=== PATIENT | male | born 2000 | race Two or more races ===

== ENCOUNTER 2023-04-19 08:24 | Outpatient (AMB) | payer BC, SELFPAY ==
--- NOTE | 2023-04-19 08:34 | MHC.PC.OV ---
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 Transferring care from Dr Olivo ([facility]). Medical records have not been requested and have not received. Pc Support Specialist Required: No Traveling Nurse: Not Required per policy Accompanied by: Self / Same As Patient Allergies No Known Allergies Allergy (Verified 04/19/23 08:49) Medication List - Last Reconciled 04/19/23 by Baldemar Viveros PA-C No Known Home Meds Tobacco use date assessed: 04/19/23 Dental Screening Dental Screen Date: 04/19/23 Did you have a dental visit in the last 12 months?: Yes Did you have a dental problem in the last 6 months where you did not have access to dental care?: No Was dental information given to patient?: Patient has dentist HPI Biotech Production Specialist HPI Details Patient is a 23-year-old male here today for new patient visit. Patient has previous PCP was at a pediatrics office. Patient's past medical history significant for ADHD. Was medicated for the ADHD in the past as a child though ports the medications that being effective and he was able to focus on his own. Vaccines: Up-to-date with COVID vaccine, , UTD with Tdap. considering flu vaccine [facility] Surgical History No pertinent past surgical history Social History Housing: House Alcohol intake: never Patient Tobacco Use Status: Never used Tobacco e-Cigarette/Vaping Use: Never Used Second Hand Smoke Exposure: No service: No Current occupational status: unemployed Cognitive needs: No Hearing needs: No Vision needs: Yes (glasses) Questionnaire PHQ-9 Over the last 2 weeks, how often have you been bothered by any of the following problems? 1. Little interest or pleasure in doing things: not at all 2. Feeling down, depressed, or hopeless: not at all 3. Trouble falling or staying asleep, or sleeping too much: not at all 4. Feeling tired or having little energy: not at all 5. Poor appetite or overeating: not at all 6. Feeling bad about yourself - or that you are a failure or have let yourself or your family down: not at all 7. Trouble concentrating on things, such as reading the newspaper or watching television: not at all 8. Moving or speaking so slowly that other people could have noticed. Or the opposite - being so fidgety or restless that you have been moving around a lot more than usual: not at all 9. Thoughts that you would be better off or of hurting yourself in some way: not at all Total score: 0 Depression Screening Interpretation: Negative 39142 - PHQ-9 Billing: Yes Source: Developed by Drs. Humberto Rubio, Cecy Pantoja, Luis Botello and colleagues, with an educational carmel from [employer]. Thrive Questionnaire Date Thrive assessed: 04/19/23 I am a: Patient What is your living situation today?: I have a steady place to live Within the past 12 months, did the food you bought not last and you didn't have the money to get more?: Never true Within the past 12 months, did you worry whether your food would run out before you got money to buy more?: Never true Do you have trouble paying for medicines?: No Do you have trouble getting transportation to medical appointments?: No Do you have trouble paying your heating and electricity bill?: No Do you have trouble taking care of your child, family member or friend?: No Do you have trouble with day-to-day activities such as bathing, preparing meals, shopping, managing finances, etc.?: No Are you currently unemployed and looking for a job?: No Are you interested in more education?: No Currently or been in a relationship where the following occur: no concerns reported AUDIT C Alcohol Use Questionnaire (AUDIT-C) 1. How often do you have a drink containing alcohol?: Never Total Score: 0 LINDA-7 AMB Questionnaire LINDA-7 Date LINDA - 7 assessed: 04/19/23 Feeling nervous, anxious, or on edge: 0 = Not at all Not being able to stop or control worryin = Not at all Worrying too much about different things: 0 = Not at all Trouble relaxin = Not at all Being so restless that it is hard to sit still: 0 = Not at all Becoming easily annoyed or irritable: 0 = Not at all Feeling afraid as if something awful might happen: 0 = Not at all Total LINDA-7 score (0-4 normal; 5-9 mild; 10-14 moderate; 15-21 severe): 0 Source: Developed by Drs. Humberto Rubio, Cecy Pantoja, Luis Botello and colleagues, with an educational carmel from [employer]. LINDA-7 Assessment Billing LINDA-7 Assessment Tool: LINDA-7 Assessment 97631 Review of Systems Const Denies excessive sweating, Denies fatigue and Denies headache(s) Eyes Denies loss of vision ENT Denies vertigo, Denies dizziness, Denies headache(s) and Denies sore throat Card Denies chest pain, Denies leg edema and Denies lightheadedness Resp Denies cough, Denies hemoptysis and Denies wheezing GI Denies abdominal pain, Denies melena, Denies constipation, Denies diarrhea and Denies vomiting Denies dysuria, Denies urinary frequency and Denies urinary urgency Musc Denies arthralgias, Denies joint swelling, Denies numbness and Denies tingling Skin/Breast Denies rash and Denies skin ulcer Neuro Denies Abnormal speech present, Denies behavioral changes, Denies vertigo, Denies dizziness, Denies headache(s), Denies loss of vision, Denies memory loss, Denies numbness and Denies tingling Psych Denies anxiety, Denies behavioral changes, Denies depression, Denies memory loss and Denies panic attacks Endo Denies excessive sweating, Denies fatigue, Denies flushing, Denies polydipsia and Denies polyuria Diego/Lymph Denies easy bleeding and Denies easy bruising Aller/Immun Denies wheezing Physical exam (Primary Care) Vital Signs: Last Vital Signs Pulse 66 04/19/23 08:36 BP 98/60 04/19/23 08:36 Pulse Ox 99 04/19/23 08:36 Oxygen Delivery Method Room Air 04/19/23 08:36 BMI result Body Mass Index 20.3 Tobacco/Smoking Status: Tobacco use Status Tobacco use date assessed 04/19/23 04/19/23 08:44 Patient Tobacco Use Status Never used Tobacco 04/19/23 08:44 e-Cigarette/Vaping Use Never Used 04/19/23 08:44 PHQ-9: PHQ-9 Score PHQ-9: Total score 0 04/19/23 09:00 Depression Screening Interpretation: Negative Thrive Assessment: Date of Thrive Assessment Date Thrive assessed 04/19/23 04/19/23 08:44 Currently or been in a relationship where the following occur: no concerns reported Const General: healthy appearing, no acute distress, alert and awake Nutritional Appearance: well nourished Orientation/consciousness: oriented to person, oriented to place and oriented to time HENMT Head: Yes normocephalic Ears: TM's normal bilaterally General nose exam: Normal nasal mucous membranes and turbinates present Face and sinus: No sinus tenderness Mouth: Normal oral and palatal mucosa present and tongue normal Teeth and gingiva: dentition normal and gingiva normal Throat: Yes posterior oropharynx normal, Yes tonsils normal and Yes uvula midline Eyes Conjunctivae: conjunctivae normal Sclerae: sclerae normal Pupils: Equal, round and reactive pupils present EOM: EOMs intact bilaterally Direct Ophthalmoscopy: No no photophobia Neck Neck: Yes no lymphadenopathy and Yes no JVD Thyroid: Thyroid normal Carotids: no bruits Chest Chest palpation & inspection: no tenderness Resp Effort & Inspection: normal respiratory effort and not tachypneic Auscultation: no crackles, no rales, no rhonchi and no wheezes Cardio Jugular venous distension: no JVD Rate: regular rate Rhythm: regular rhythm Heart sounds: no murmurs and normal S1 and S2 Bruits: no carotid bruits Peripheral pulses: Peripheral pulses 2+ throughout GI Inspection: Yes normal to inspection, No abdominal wall ecchymosis and No visible herniation Palpation (GI): Soft to palpation, nontender, no hepatomegaly and no splenomegaly Auscultation: normal bowel sounds General: Yes no CVA tenderness Back/Spine/Pelvis Back: no CVA tenderness and No back tenderness Cervical Spine: cervical ROM normal Thoracic/Lumbar Spine: thoracic and lumbar spine normal to inspection, straight leg raise negative bilaterally, No thoraco-lumbar ROM limited and No lumbar spinal tenderness Skin General skin exam: no rashes or lesions noted and dry skin Lesions: no lesions Rashes: no rashes Wounds: no wounds Neuro General: oriented to person, oriented to place and oriented to time Cranial nerves: Yes Equal, round and reactive pupils present Cognition (Neuro): normal cognition Speech: No Abnormal speech present Gait exam (Neuro): Normal gait present Motor exam (neuro): no tremor noted Extrem Right upper extremity: full ROM Left upper extremity: full ROM Right lower extremity: full ROM; no edema Left lower extremity: full ROM; no edema Psych Appearance: grossly normal Mental Status: mental status grossly normal Speech and movement: Normal speech and movement present Affect: normal affect Attitude: cooperative Thought process: Normal thought process present Assessment and Plan Assessment & Plan (1) Annual physical exam: Code(s): Z00.00 - Encounter for general adult medical examination without abnormal findings (2) Screening for diabetes mellitus (DM): Code(s): Z13.1 - Encounter for screening for diabetes mellitus (3) ADHD (attention deficit hyperactivity disorder): Code(s): F90.9 - Attention-deficit hyperactivity disorder, unspecified type Qualifiers: Attention deficit-hyperactivity disorder type: predominantly inattentive Qualified Code(s): F90.0 - Attention-deficit hyperactivity disorder, predominantly inattentive type Plan: Patient is a history of ADHD disorder that was diagnosed as a child. He was previously medicated for ADHD disorder though has stopped taking medication as he has been able to manage his attention focus on his own. Orders: Orders Comprehensive [place]. Panel Fast Today Z13.1 - Encounter for screening for diabetes mellitus Coding Level of Care Code New Pt Prev Care 18-39yr(39595 Diagnoses Annual physical exam Z00.00 Screening for diabetes mellitus (DM) Z13.1 Attention deficit hyperactivity disorder (ADHD), predominantly inattentive type F90.0 Attention deficit-hyperactivity disorder type: predominantly inattentive Additional Codes LINDA-7 Assessment Billing - LINDA-7 Assessment Tool: LINDA-7 Assessment 32790 ([id number])
[2023-04-19 08:36] VITALS: BP 98/60; PULSE 66; O2SAT 99; BMI 20.3
== END 2023-04-19 09:00 | disposition home or self-care (01) ==
PROVIDERS: PCP Physician Assistant; Visit Provider Physician Assistant
DX: Z00.00 Encounter for general adult medical examination without abnormal findings (principal); Z13.1 Encounter for screening for diabetes mellitus; F90.0 Attention-deficit hyperactivity disorder, predominantly inattentive type
CPT/HCPCS: 99385

== ENCOUNTER 2023-04-21 11:03 | Outpatient (REF) | payer BC, SELFPAY ==
[2023-04-21 12:56] LABS: Alanine Aminotransferase 35 U/L (0-40); Albumin Level 4.8 g/dL (3.5-5.0); Alkaline Phosphatase 101 U/L (39-117); Anion Gap 12 (12-20); Aspartate Amino Transferase 20 U/L (5-37); Blood Urea Nitrogen 12 mg/dL (9-16); Calcium 9.9 mg/dL (8.4-10.2); Carbon Dioxide 28 mmol/L (22-29); Chloride 103 mmol/L (96-108); Estimated Glomerular Filt Rate > 60; Glucose Fasting 86 mg/dL (60-99); Sodium 139 mmol/L (135-145); Total Protein 7.7 g/dL (6.5-8.0)
== END 2023-04-21 11:04 | disposition home or self-care (01) ==
LOC: HO.LAB 11:03
PROVIDERS: PCP Physician Assistant; Visit Provider Physician Assistant
DX: Z13.1 Encounter for screening for diabetes mellitus (principal)
CPT/HCPCS: 36415; 80053

== ENCOUNTER 2024-08-21 10:10 | Outpatient (AMB) | payer BC, SELFPAY ==
--- NOTE | 2024-08-21 10:12 | MHC.PC.OV ---
Vital Signs 08/21/24 10:14 Height 5 ft 9.06 in Weight 152 lb 8 oz BMI 22.5 BP 118/80 Blood Pressure Location Lt brachial Position Sitting Respiration 15 Pulse 76 Pulse Source Pulse Oximeter Temp 97.3 F Temp Source Temporal Artery Scan Pulse Oximetry (%) 95 Oxygen Delivery Method Room Air Intake Visit Reasons: annual exam Intake Note: Patient is here today for a physical. 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 Accompanied by: Self / Same As Patient Allergies No Known Allergies Allergy (Verified 08/21/24 10:26) Medication List - Last Reconciled 08/21/24 by Baldemar Viveros PA-C No Known Home Meds Tobacco use date assessed: 08/21/24 Dental Screening Dental Screen Date: 08/21/24 Did you have a dental visit in the last 12 months?: Yes Did you have a dental problem in the last 6 months where you did not have access to dental care?: No Was dental information given to patient?: Patient has dentist HPI annual exam HPI Details Patient is a 24-year-old male here today for annual physical Patient's past medical history significant for ADHD. Was medicated for the ADHD in the past as a child though ports the medications that being effective and he was able to focus on his own. Vaccines: Up-to-date with COVID vaccine, , UTD with Tdap. considering flu vaccine [facility] Surgical History No pertinent past surgical history Social History Housing: House Alcohol intake: never Patient Tobacco Use Status: Never used Tobacco e-Cigarette/Vaping Use: Never Used Second Hand Smoke Exposure: No service: No Current occupational status: unemployed Cognitive needs: No Hearing needs: No Vision needs: Yes (glasses) Questionnaire PHQ-9 Over the last 2 weeks, how often have you been bothered by any of the following problems? 1. Little interest or pleasure in doing things: not at all 2. Feeling down, depressed, or hopeless: not at all 3. Trouble falling or staying asleep, or sleeping too much: not at all 4. Feeling tired or having little energy: not at all 5. Poor appetite or overeating: not at all 6. Feeling bad about yourself - or that you are a failure or have let yourself or your family down: not at all 7. Trouble concentrating on things, such as reading the newspaper or watching television: not at all 8. Moving or speaking so slowly that other people could have noticed. Or the opposite - being so fidgety or restless that you have been moving around a lot more than usual: not at all 9. Thoughts that you would be better off or of hurting yourself in some way: not at all Total score: 0 Depression Screening Interpretation: Negative Depression Screening Done: Yes 18885 - PHQ-9 Billing: Yes Source: Developed by Drs. Humberto Rubio, Cecy Pantoja, Luis Botello and colleagues, with an educational carmel from [employer]. Thrive Questionnaire Date Thrive assessed: 08/21/24 I am a: Patient What is your living situation today?: I have a steady place to live Within the past 12 months, did the food you bought not last and you didn't have the money to get more?: Never true Within the past 12 months, did you worry whether your food would run out before you got money to buy more?: Never true Do you have trouble paying for medicines?: No Do you have trouble getting transportation to medical appointments?: No Do you have trouble paying your heating and electricity bill?: No Do you have trouble taking care of your child, family member or friend?: No Do you have trouble with day-to-day activities such as bathing, preparing meals, shopping, managing finances, etc.?: No Are you currently unemployed and looking for a job?: Yes Are you interested in more education?: No Please select the resources that you would like help with: None Currently or been in a relationship where the following occur: No concerns reported THRIVE Score: 0 AUDIT C Alcohol Use Questionnaire (AUDIT-C) 1. How often do you have a drink containing alcohol?: Never 3. How often do you have six or more drinks on one occasion?: Never Total Score: 0 LINDA-7 AMB Questionnaire LINDA-7 Date LINDA - 7 assessed: 08/21/24 Feeling nervous, anxious, or on edge: 0 = Not at all Not being able to stop or control worryin = Not at all Worrying too much about different things: 0 = Not at all Trouble relaxin = Not at all Being so restless that it is hard to sit still: 0 = Not at all Becoming easily annoyed or irritable: 0 = Not at all Feeling afraid as if something awful might happen: 0 = Not at all Total LINDA-7 score (0-4 normal; 5-9 mild; 10-14 moderate; 15-21 severe): 0 Source: Developed by Drs. Humberto Rubio, Cecy Pantoja, Luis Botello and colleagues, with an educational carmel from [employer]. LINDA-7 Assessment Billing LINDA-7 Assessment Tool: LINDA-7 Assessment 75615 Review of Systems Const Denies body aches, Denies chills, Denies excessive sweating, Denies fatigue, Denies fever(s) and Denies headache(s) Eyes Denies blurry vision ENT Denies dysphagia, Denies vertigo, Denies dizziness, Denies headache(s), Denies hearing loss and Denies tinnitus Card Denies chest pain, Denies chest pain with activity, Denies syncope, Denies irregular heart rhythm and Denies dyspnea Resp Denies chest congestion, Denies cough, Denies hemoptysis, Denies dyspnea and Denies wheezing GI Denies abdominal pain, Denies melena, Denies hematochezia, Denies coffee ground emesis, Denies dysphagia, Denies diarrhea, Denies nausea and Denies vomiting Denies difficulty urinating, Denies dysuria, Denies urinary frequency, Denies urinary hesitancy and Denies urinary urgency Musc Denies arthralgias, Denies limited range of motion, Denies muscle cramps and Denies muscle weakness Skin/Breast Denies rash and Denies skin ulcer Neuro Denies Abnormal speech present, Denies confusion, Denies vertigo, Denies dizziness, Denies syncope, Denies headache(s), Denies memory loss and Denies seizure-like activity Psych Denies anxiety, Denies confusion, Denies depression, Denies memory loss, Denies panic attacks and Denies paranoia Endo Denies excessive sweating, Denies fatigue, Denies flushing, Denies polydipsia and Denies polyuria Aller/Immun Denies wheezing Physical exam (Primary Care) Vital Signs: Last Vital Signs Temp 97.3 F 08/21/24 10:14 Pulse 76 08/21/24 10:14 Resp 15 08/21/24 10:14 BP 118/80 08/21/24 10:14 Pulse Ox 95 08/21/24 10:14 Oxygen Delivery Method Room Air 08/21/24 10:14 BMI result Body Mass Index 22.5 Tobacco/Smoking Status: Tobacco use Status Tobacco use date assessed 08/21/24 08/21/24 10:16 Patient Tobacco Use Status Never used Tobacco 08/21/24 10:12 e-Cigarette/Vaping Use Never Used 08/21/24 10:12 PHQ-9: PHQ-9 Score PHQ-9: Total score 0 08/21/24 10:24 Depression Screening Interpretation: Negative Thrive Assessment: Date of Thrive Assessment Date Thrive assessed 08/21/24 08/21/24 10:16 Currently or been in a relationship where the following occur: No concerns reported Const General: cooperative, comfortable, no acute distress, alert and awake; No confusion Orientation/consciousness: oriented to person, oriented to place, patient oriented x3 and No confusion HENMT Head: Yes normocephalic Ears: external ears normal and TM's normal bilaterally Face and sinus: No sinus tenderness Mouth: Normal oral and palatal mucosa present and tongue normal Teeth and gingiva: dentition normal and gingiva normal Throat: Yes posterior oropharynx normal, Yes tonsils normal and Yes uvula midline Eyes Conjunctivae: conjunctivae normal Sclerae: sclerae normal Pupils: Equal, round and reactive pupils present EOM: EOMs intact bilaterally Direct Ophthalmoscopy: No no photophobia Neck Neck: Yes no lymphadenopathy, No tender and Yes no JVD Thyroid: Thyroid normal Carotids: no bruits Chest Chest palpation & inspection: no tenderness Resp Effort & Inspection: normal respiratory effort, no audible wheezes, not labored and no stridor Auscultation: no crackles, no rales, no rhonchi and no wheezes Cardio Jugular venous distension: no JVD Rate: regular rate, not bradycardic and not tachycardic Rhythm: regular rhythm Bruits: no carotid bruits Peripheral pulses: Peripheral pulses 2+ throughout GI Inspection: Yes normal to inspection, No abdominal wall ecchymosis and No visible herniation Palpation (GI): Soft to palpation, nontender, no guarding, not rigid and No hepatosplenomegaly present Auscultation: normoactive bowel sounds General: Yes no CVA tenderness Back/Spine/Pelvis Back: no CVA tenderness and No back tenderness Cervical Spine: cervical ROM normal Thoracic/Lumbar Spine: thoracic and lumbar spine normal to inspection, straight leg raise negative bilaterally, No thoraco-lumbar ROM limited and No lumbar spinal tenderness Skin Lesions: no lesions Rashes: no rashes Wounds: no wounds Neuro General: oriented to person, oriented to place, patient oriented x3, CN's II-XI intact bilaterally and No confusion Cranial nerves: Yes Equal, round and reactive pupils present and Yes Normal accommodation reflex present Cognition (Neuro): normal cognition Speech: No Abnormal speech present Gait exam (Neuro): Normal gait present Motor exam (neuro): 5/5 motor strength present throughout Extrem Right upper extremity: full ROM; no cyanosis Left upper extremity: full ROM; no cyanosis Right lower extremity: no edema Left lower extremity: no edema Psych Appearance: grossly normal Mental Status: mental status grossly normal Affect: normal affect Attitude: cooperative Thought process: Normal thought process present Office Procedures Flu Questionnaire Does the patient have a severe egg allergy?: No Does the patient have severe life threatening allergies?: No Does the patient have a fever or illness today?: No Has the patient ever had Guillain-Cypress Syndrome?: No Has the patient ever had any past reaction to a flu shot?: No Immunizations Fluarix Triv [id number] (PF) 45 mcg (15 mcg x 3)/0.5 mL IM syringe Performing Provider: Baldemar Viveros PA-C [facility] [facility] [facility] [place] [facility] Documented (not given) by: EMILIANO Garcia on 08/21/24 10:24 Reason Not Given: Patient Refused Coding Level of Care Code Est Pt Prev Care 18-39y(46988) Diagnoses Annual physical exam Z00.00 Attention deficit hyperactivity disorder (ADHD), predominantly inattentive type F90.0 Attention deficit-hyperactivity disorder type: predominantly inattentive Additional Codes LINDA-7 Assessment Billing - LINDA-7 Assessment Tool: LINDA-7 Assessment 80712 ([id number]) PHQ-9 - 12794 - PHQ-9 Billing: Yes ([id number]) Assessment & Plan Assessment & Plan (1) Annual physical exam: Code(s): Z00.00 - Encounter for general adult medical examination without abnormal findings Category: Medical Plan: As per HPI (2) ADHD (attention deficit hyperactivity disorder): Code(s): F90.9 - Attention-deficit hyperactivity disorder, unspecified type Category: Medical Qualifiers: Attention deficit-hyperactivity disorder type: predominantly inattentive Qualified Code(s): F90.0 - Attention-deficit hyperactivity disorder, predominantly inattentive type Plan: Does have the diagnosis of ADHD. Was medicated as a child though does not want to for to be medicated. He feels he is able to control his attention deficit. He is currently studying to do his permanent exam and has been applying for local jobs Orders: Orders Influenza [id number] Immunization Today Z23 - Encounter for immunization Comprehensive [place]. Panel Fast Today Z13.1 - Encounter for screening for diabetes mellitus
[2024-08-21 10:14] VITALS: BP 118/80; PULSE 76; RESP 15; TEMP 36.3; O2SAT 95; BMI 22.5
== END 2024-08-21 10:37 | disposition home or self-care (01) ==
PROVIDERS: PCP Physician Assistant; Visit Provider Physician Assistant
DX: Z00.00 Encounter for general adult medical examination without abnormal findings (principal); F90.0 Attention-deficit hyperactivity disorder, predominantly inattentive type; Z23 Encounter for immunization

== ENCOUNTER → 2024-08-21 10:10 | Outpatient (BNVA) | payer BC, SELFPAY | PROVIDERS: PCP Physician Assistant; Visit Provider Physician Assistant | DX: Z00.00 Encounter for general adult medical examination without abnormal findings (principal); F90.0 Attention-deficit hyperactivity disorder, predominantly inattentive type; Z28.21 Immunization not carried out because of patient refusal | CPT/HCPCS: 90471; 96127 ==

== ENCOUNTER 2024-10-19 08:12 | Outpatient (REF) | payer BC, SELFPAY ==
--- OUTSIDE RECORDS SUMMARY | 2024-10-19 08:15 | XMS_ITS | Encounter Summary ---
Author Organization [facility] Address [address] [place] [address] Phone Care Team Providers Care Shot Blaster Name Role Phone Juvenal Beck MD Primary Care Provider [phone] Encounter Details Date Type Department Care Team (Late st Contact Info) Description 07/20/2011 Documentation [facility] Family Medicine [address] [place], [place] [id number] Family Medicine, Physician [address] [place] [address] Social History Tobacco Use Types Packs/Day Years Used Date Smoking Tobacco: Never Assessed Sex and Gender Information Value Date Recorded Sex Assigned at Male 02/03/2021 4:23 PM EDT Legal Sex Male 5:11 PM EDT Gender Identity Male 02/03/2021 4:23 PM EDT Sexual Orientation Not on file documented as of this encounter Plan of Treatment Not on file documented as of this encounter Visit Diagnoses Not on filedocumented in this encounter Care Teams Shot Blaster Relationship Specialty Start Date End Date Juvenal Beck MD [address] [place] [id number] PCP - General Pediatrics 12/16/20 02/28/23 documented as of this encounter
--- OUTSIDE RECORDS SUMMARY | 2024-10-19 08:15 | XMS_ITS | Clinical Summary ---
Author Organization [facility] Address [address] [place] [address] Phone Care Team Providers Care Search Engine Marketing Specialist Name Role Phone Unavailable Primary Care Provider Unavailabl e Allergies No known active allergies Medications No known medications Active Problems Problem Noted Date Diagnosed Date Refused influenza vaccine 10/08/2019 Vision abnormalities 05/09/2019 Overview (02/03/2021): 01/25- went to eye doc spring Immunizations Immunization Administration Dates Next Due DTaP 5 04/03/2006, 4,2002, 002,2002 HPV Vaccine 9 Valent 04/20/2016,11/25/2015,05/27 Hep A, ped/adol 05/27/2015,04/14/2014 Hep B, ped/adol 2002,2002,2002 Hib (PRP-T) 07/23/2003, 3,2002, 002 IPV 04/03/2006, 3,2002, 002 MMR 04/03/2006,03/19/2003 Meningococcal Conj (Menactra) MCV4P 05/04/2018,0 04/14/2014 Pneumococcal Conjugate 07/23/2003,2002,2002, 002 Tdap 04/14/2014 Varicella 09/01/2008,03/19/2003 Family History Medical History Relation Name Comments Hypertension Maternal Grandfather No Known Problems Mother Relation Name Status Comments Father Alive Maternal Grandfather Alive Maternal Grandmother Alive Mother Alive Other No family histo ry of *Heart Disease, No family history of Cancer, Family history of Stroke, Family history of Diabetes mellitus, No family history of *Thrombophilia, Family history of ADD/ADHD, No family history of *Sudden /SD under 55, No family history of Migraines, No family history of Seizure disorder, Family history of Hyperlipidemia, No family history of Strabismus, No family history of *CVA/Stroke, No family history of Asthma, No family history of Deafness, No family history of *Dental caries, No family history of Developmental dislocation of hip, No family history of Obesity Paternal Grandfather Alive Paternal Grandmother Alive Sister Alive Sister: Alive a nd well Social History Tobacco Use Types Packs/Day Years Used Date Smoking Tobacco: Never Comments:Never smoker Hunger/Food Answer Date Recorded In the last 12 months, did y ou or your family ever eat less than you felt you should because there wasn't enough money for food? No 02/03/2021 Stable Housing Answer Date Recorded Are you worried that in the next 2 months you may not have stable housing? No 02/03/2021 Transportation Concerns Answer Date Rec orded In the last 12 months, have you or your family ever had to go without healthcare because you didn't have a way to get there? No 02/03/2021 Hazards in Home Answer Date Recorded Think about the place you li ve. Do you have problems with any of the following? Pests (mice or roaches), mold, no/not working smoke detectors, water leaks, no window guards. No 2020 Financing Utilities Answer Date Recorde d In the last 12 months, has t he electric, gas, oil, or water company threatened to shut off your services in your home? No 02/03/2021 Safety at Home Answer Date Recorded Are you or your family worried about feeling saf e in your home? No 02/03/2021 Outside Support Answer Date Recorded Do you feel that you need mo re support from other people or programs to help you care for yourself or your family? No 02/03/2021 Understanding Health Concerns Answer Da te Recorded Do you need help understandi ng your or your child's healthcare needs (diagnosis, medications, plan, etc.)? No 02/03/2021 Financing Health Concerns Answer Date R ecorded In the last 12 months, was t here a time when your child needed to see a doctor or get medications or supplies but could not because of cost? No 02/03/2021 Missing School or Work Answer Date Amrit rded Did you or your child miss s chool or work because of a health problem that could have been avoided? No 02/03/2021 Sex and Gender Information Value Date Recorded Sex Assigned at Male 02/03/2021 4:23 PM EDT Legal Sex Male 5:11 PM EDT Gender Identity Male 02/03/2021 4:23 PM EDT Sexual Orientation Not on file Last Filed Vital Signs Vital Sign Reading Time Taken Comments Blood Pressure 115/72 02/03/2021 3:56 PM EDT Pulse 67 02/03/2021 3:56 PM EDT Temperature 36.8 ??C (98.2 ??F) 02/03/2021 3:56 PM ED T Respiratory Rate - - Oxygen Saturation - - Inhaled Oxygen Concentration - - Weight 63.7 kg (140 lb 8 oz) 02/03/2021 3:56 PM EDT Height 174.6 cm (5' 8.75 ) 02/03/2021 3:56 PM ED T Body Mass Index 20.9 02/03/2021 3:56 PM EDT Plan of Treatment Health Maintenance Due Date Last Done Comments Consider Men B Vaccine (1 of 2 - Bexsero 2-dose series) 2018 Men B Vaccine (1 of 2 - Standard) 2018 Influenza Vaccines (#1) 2024 COVID-19 Vaccine (3 - 2023-2 5 season) 2024 02/08/2021, 01/11/2021 DTaP,Tdap,and Td Vaccines (7 - Td or Tdap) 04/14/2024 04/14/2014, 04/03/2006, 09/26/2003, Additional history exists Hepatitis B Vaccines Completed 2002, 2002, 2002 HIB Vaccines Completed 07/23/2003, 08/08, 2002, Additional history exists Pneumococcal Vaccine Completed 07/23/2003, 2002, 2002, Additional history exists IPV Vaccines Completed 04/03/2006, 11/06, 2002, Additional history exists MMR Vaccines Completed 04/03/2006, 03/19/2003 Varicella Vaccines Completed 09/01/2008, 03/19/2003 Hepatitis A Vaccines Completed 05/27/2015, 04/14/20 14 HPV Vaccines Completed 04/20/2016, 11/06, 05/27/2015 Meningococcal Vaccine Completed 05/04/2018, 014 Insurance [employer] BLUE CARD OUT OF STATE
--- OUTSIDE RECORDS SUMMARY | 2024-10-19 08:15 | XMS_ITS ---
Author Name [facility] Organization Unknown Care Team Organization Name Specialty Phone Email Start Date End Da te Office of the Gallery Or Museum Attendant ([facility]) 06/21/2024
--- OUTSIDE RECORDS SUMMARY | 2024-10-19 08:16 | XMS_ITS | Encounter Summary ---
Author Organization [facility] Address [address] [place] [address] Phone Care Team Providers Care Forms Builder Name Role Phone Juvenal Beck MD Primary Care Provider Encounter Details Date Type Department Care Team (Late st Contact Info) Description 07/11/2015 Documentation [facility] [place] Family Medicine [address] [place], [place] [id number] Family Medicine, Physician [address] [place] [address] Social History Tobacco Use Types Packs/Day Years [...] on filedocumented in this encounter Care Teams Forms Builder Relationship Specialty Start Date End Date Juvenal Beck MD [address] [place] [id number] PCP - General Pediatrics 12/16/20 02/28/23 documented as of this encounter
--- OUTSIDE RECORDS SUMMARY | 2024-10-19 08:16 | XMS_ITS | Clinical Summary ---
Author Organization [facility] it Address [address] [place] [address] Care Team Providers Care Chain Tender Name Role Phone Unavailable Primary Care Provider Unavailabl e Social History Tobacco Use Types Packs/Day Years Used Date Smoking Tobacco: Never Assessed Sex and Gender Information Value Date Recorded Sex Assigned at Not on file Legal Sex Male 4:35 AM EST Gender Identity Not on file Sexual Orientation Not on file Plan of Treatment Health Maintenance Due Date Last Done Comments HPV Vaccines (1 - Male 3-dos e series) 2017 Meningococcal B Vacine (1 of 2 - Standard) 2018 DTaP,Tdap,and Td Vaccines (1 - Tdap) 2021 Hepatitis B Vaccines (1 of 3 - 19+ 3-dose series) 2021 Depression Screening 07/10/2022 HIV Screening 07/10/2022 Hepatitis C Screening 07/10/2022 Social Influencers of Health Screening 07/10/2022 COVID-19 Vaccine ( - 2023-2 5 season) 2024 Influenza Vaccine (#1) 2024 HIB Vaccines Aged Out No longer eligi ble based on patient's age to complete this topic Hepatitis A Vaccines Aged Out No long er eligible based on patient's age to complete this topic IPV Vaccines Aged Out No longer eligi ble based on patient's age to complete this topic MMR Vaccines Aged Out No longer eligi ble based on patient's age to complete this topic Meningococcal ACWY Vaccine Aged Out N o longer eligible based on patient's age to complete this topic Pneumococcal Vaccine: Pediat rics (0 to 5 Years) and At-Risk Patients (6 to 64 Years) Aged Out No longer eligible b ased on patient's age to complete this topic RSV Immunization Patients Un jaime 20 months Aged Out No longer eligible b ased on patient's age to complete this topic Varicella Vaccines Aged Out No longer eligible based on patient's age to complete this topic
--- OUTSIDE RECORDS SUMMARY | 2024-10-19 08:16 | XMS_ITS | Encounter Summary ---
Author Organization [facility] Address [address] [place] [address] Phone Care Team Providers Care Coat Checker Name Role Phone Juvenal Beck MD Primary Care Provider [phone] Encounter Details Date Type Department Care Team (Late st Contact Info) Description 11/13/2009 Documentation [facility] [place] Family Medicine [address] [place], [place] [id number] Family Medicine, Physician [address] [place] [address] Social History Tobacco Use Types Packs/Day Years [...] on filedocumented in this encounter Care Teams Coat Checker Relationship Specialty Start Date End Date Juvenal Beck MD [address] [place] [id number] PCP - General Pediatrics 12/16/20 02/28/23 documented as of this encounter
[2024-10-19 09:14] LABS: Alanine Aminotransferase 84 U/L (0-40); Albumin Level 4.5 g/dL (3.5-5.0); Alkaline Phosphatase 89 U/L (39-117); Anion Gap 11 (12-20); Aspartate Amino Transferase 35 U/L (5-37); Bilirubin Total 0.6 mg/dL (0.0-1.0); Blood Urea Nitrogen 14 mg/dL (9-16); Calcium 9.4 mg/dL (8.4-10.2); Carbon Dioxide 27 mmol/L (22-29); Chloride 105 mmol/L (96-108); Estimated Glomerular Filt Rate > 60; Glucose Fasting 84 mg/dL (60-99); Potassium 3.9 mmol/L (3.3-5.1); Sodium 139 mmol/L (135-145); Total Protein 7.8 g/dL (6.5-8.0)
== END 2024-10-19 08:13 | disposition home or self-care (01) ==
LOC: HO.LAB 08:12
PROVIDERS: PCP Physician Assistant; Visit Provider Physician Assistant
DX: Z13.1 Encounter for screening for diabetes mellitus (principal)
CPT/HCPCS: 36415; 80053

== ENCOUNTER 2025-01-15 10:47 | Outpatient (REF) | payer BC, SELFPAY ==
[2025-01-15 12:39] LABS: Alanine Aminotransferase 59 U/L (0-40); Albumin Level 4.8 g/dL (3.5-5.0); Alkaline Phosphatase 83 U/L (39-117); Aspartate Amino Transferase 35 U/L (5-37); Bilirubin Direct 0.2 mg/dL (0.0-0.5); Bilirubin Total 0.6 mg/dL (0.0-1.0); Total Protein 7.2 g/dL (6.5-8.0)
== END 2025-01-15 10:48 | disposition home or self-care (01) ==
LOC: HO.LAB 10:47
PROVIDERS: PCP Physician Assistant; Visit Provider Physician Assistant
DX: R74.8 Abnormal levels of other serum enzymes (principal)
CPT/HCPCS: 36415; 80076; 96127

== ENCOUNTER 2025-01-15 10:47 | Outpatient (AMB) | payer BC, SELFPAY ==
--- NOTE | 2025-01-15 10:50 | MHC.PC.OV ---
Vital Signs 01/15/25 10:55 Height 5 ft 9.06 in Weight 155 lb 2 oz BMI 22.9 BP 112/70 Blood Pressure Location Lt brachial Position Sitting Pulse 88 Pulse Source Pulse Oximeter Temp 97 F Temp Source Temporal Artery Scan Pulse Oximetry (%) 97 Oxygen Delivery Method Room Air Intake Visit Reasons: follow up on the test results Managing Supervisor Required: No Accompanied by: Self / Same As Patient Allergies No Known Allergies Allergy (Verified 01/15/25 11:11) Medication List - Last Reconciled 01/15/25 by Baldemar Viveros PA-C No Known Home Meds Tobacco use date assessed: 08/21/24 Dental Screening Dental Screen Date: 08/21/24 HPI follow up on the test results HPI Details Patient is a 24-year-old male here today for follow-up visit. Most recent labs did show an elevated ALT. He was to repeat labs though has not got them done yet. Otherwise asymptomatic. He denies any use of supplements, Tylenol or drinking alcohol. Patient's past medical history significant for ADHD. Was medicated for the ADHD in the past as a child though ports the medications that being effective and he was able to focus on his own. [facility] Surgical History No pertinent past surgical history Social History Housing: House Alcohol intake: never Patient Tobacco Use Status: Never used Tobacco e-Cigarette/Vaping Use: Never Used Second Hand Smoke Exposure: No service: No Current occupational status: unemployed Cognitive needs: No Hearing needs: No Vision needs: Yes (glasses) Questionnaire PHQ-9 Over the last 2 weeks, how often have you been bothered by any of the following problems? 1. Little interest or pleasure in doing things: several days 2. Feeling down, depressed, or hopeless: not at all 3. Trouble falling or staying asleep, or sleeping too much: not at all 4. Feeling tired or having little energy: several days 5. Poor appetite or overeating: several days 6. Feeling bad about yourself - or that you are a failure or have let yourself or your family down: not at all 7. Trouble concentrating on things, such as reading the newspaper or watching television: not at all 8. Moving or speaking so slowly that other people could have noticed. Or the opposite - being so fidgety or restless that you have been moving around a lot more than usual: not at all 9. Thoughts that you would be better off or of hurting yourself in some way: not at all Total score: 3 Depression Screening Interpretation: Positive Depression Screening Follow-up: Existing condition Depression Screening Done: Yes 64122 - PHQ-9 Billing: Yes Source: Developed by Drs. Humberto Rubio, Cecy Pantoja, Luis Botello and colleagues, with an educational carmel from [employer]. Thrive Questionnaire Date Thrive assessed: 01/15/25 I am a: Patient What is your living situation today?: I have a steady place to live Within the past 12 months, did the food you bought not last and you didn't have the money to get more?: Never true Within the past 12 months, did you worry whether your food would run out before you got money to buy more?: Never true Do you have trouble paying for medicines?: No Do you have trouble getting transportation to medical appointments?: No Do you have trouble paying your heating and electricity bill?: No Do you have trouble taking care of your child, family member or friend?: No Do you have trouble with day-to-day activities such as bathing, preparing meals, shopping, managing finances, etc.?: No Are you currently unemployed and looking for a job?: Yes Are you interested in more education?: No Please select the resources that you would like help with: None Currently or been in a relationship where the following occur: No concerns reported THRIVE Score: 0 LINDA-7 AMB Questionnaire LINDA-7 Date LINDA - 7 assessed: 08/21/24 Source: Developed by Drs. Humberto Rubio, Cecy Pantoja, Luis Botello and colleagues, with an educational carmel from [employer]. Review of Systems Const Denies headache(s) Eyes Denies loss of vision ENT Denies vertigo, Denies dizziness, Denies headache(s) and Denies sore throat Card Denies chest pain, Denies leg edema and Denies lightheadedness Resp Denies cough, Denies hemoptysis and Denies wheezing GI Denies abdominal pain, Denies melena, Denies constipation, Denies diarrhea and Denies vomiting Denies dysuria, Denies urinary frequency and Denies urinary urgency Musc Denies arthralgias, Denies joint swelling, Denies numbness and Denies tingling Neuro Denies Abnormal speech present, Denies behavioral changes, Denies vertigo, Denies dizziness, Denies headache(s), Denies loss of vision, Denies memory loss, Denies numbness and Denies tingling Psych Denies anxiety, Denies behavioral changes, Denies depression, Denies memory loss and Denies panic attacks Diego/Lymph Denies easy bleeding and Denies easy bruising Aller/Immun Denies wheezing Physical exam (Primary Care) Vital Signs: Last Vital Signs Temp 97 F 01/15/25 10:55 Pulse 88 01/15/25 10:55 BP 112/70 01/15/25 10:55 Pulse Ox 97 01/15/25 10:55 Oxygen Delivery Method Room Air 01/15/25 10:55 BMI result Body Mass Index 22.9 Tobacco/Smoking Status: Tobacco use Status Tobacco use date assessed 08/21/24 01/15/25 10:52 Patient Tobacco Use Status Never used Tobacco 01/15/25 10:52 e-Cigarette/Vaping Use Never Used 01/15/25 10:52 PHQ-9: PHQ-9 Score PHQ-9: Total score 3 01/15/25 10:52 Depression Screening Interpretation: Positive Depression Screening Follow-up: Existing condition Thrive Assessment: Date of Thrive Assessment Date Thrive assessed 01/15/25 01/15/25 10:52 Currently or been in a relationship where the following occur: No concerns reported Const General: healthy appearing, no acute distress, alert and awake Nutritional Appearance: well nourished Orientation/consciousness: oriented to person, oriented to place and oriented to time HENMT Ears: TM's normal bilaterally General nose exam: Normal nasal mucous membranes and turbinates present Eyes Conjunctivae: conjunctivae normal Sclerae: sclerae normal Pupils: Equal, round and reactive pupils present Neck Neck: Yes no lymphadenopathy and Yes no JVD Thyroid: Thyroid normal Carotids: no bruits Resp Effort & Inspection: normal respiratory effort and not tachypneic Auscultation: no crackles, no rales, no rhonchi and no wheezes Cardio Rate: regular rate Rhythm: regular rhythm Heart sounds: no murmurs and normal S1 and S2 GI Palpation (GI): Soft to palpation, nontender, no hepatomegaly and no splenomegaly Auscultation: normal bowel sounds Skin General skin exam: no rashes or lesions noted and dry skin Neuro General: oriented to person, oriented to place and oriented to time Cranial nerves: Yes Equal, round and reactive pupils present Speech: No Abnormal speech present Gait exam (Neuro): Normal gait present Motor exam (neuro): no tremor noted Extrem Right upper extremity: full ROM Left upper extremity: full ROM Right lower extremity: full ROM; no edema Left lower extremity: full ROM; no edema Psych Mental Status: mental status grossly normal Speech and movement: Normal speech and movement present Affect: normal affect Attitude: cooperative Thought process: Normal thought process present Coding Level of Care Code Est Pt Level 3 (87680) Diagnoses Elevated liver enzymes R74.8 Additional Codes PHQ-9 - 77314 - PHQ-9 Billing: Yes ([id number]) Assessment & Plan Assessment & Plan (1) Elevated liver enzymes: Code(s): R74.8 - Abnormal levels of other serum enzymes Category: Medical Plan: Noted slightly elevated ALT and most recent labs. He is willing to recheck his liver profile and if elevated will consider ultrasound abdomen evaluate for fatty liver or liver etiology. Orders: Orders Liver Panel Today R74.8 - Abnormal levels of other serum enzymes
[2025-01-15 10:55] VITALS: BP 112/70; PULSE 88; TEMP 36.1; O2SAT 97; BMI 22.9
== END 2025-01-15 11:25 | disposition home or self-care (01) ==
LOC: HO.HMCH 10:48
PROVIDERS: PCP Physician Assistant; Visit Provider Physician Assistant
DX: R74.8 Abnormal levels of other serum enzymes (principal)

== ENCOUNTER → 2025-02-11 12:43 | Outpatient (REF) | payer BC, SELFPAY ==
--- NOTE | 2025-02-11 12:53 | ECG_ITS ---
Test Reason : R00.1 - Bradycardia, unspecified Blood Pressure : */* mmHG Vent. Rate : 67 BPM Atrial Rate : 67 BPM P-R Int : 124 ms QRS Dur : 88 ms QT Int : 406 ms P-R-T Axes : 63 64 41 degrees QTcB Int : 429 ms Normal sinus rhythm with sinus arrhythmia Normal ECG No previous ECGs available Referred By: Baldemar Viveros Electronically Signed By: Farhan Spring
--- OUTSIDE RECORDS SUMMARY | 2025-02-11 13:26 | XMS_ITS | Encounter Summary ---
Author Organization [facility] Address [address] [place] [address] Phone Care Team Providers Care Satellite Television Installer Name Role Phone Juvenal Beck MD Primary Care Provider [phone] Encounter Details Date Type Department Care Team (Late st Contact Info) Description 03/23/2017 Conversion Encounter [facility] [place] [address] [place] [address] Social History Tobacco Use Types Packs/Day Years Used Date Smoking Tobacco: Never Comments:Never smoker Sex and Gender Information Value Date Recorded Sex Assigned at Male 02/03/2021 4:23 PM EDT Legal Sex Male 5:11 PM EDT Gender Identity Male 02/03/2021 4:23 PM EDT Sexual Orientation Not on file documented as of this encounter Plan of Treatment Not on file documented as of this encounter Visit Diagnoses Not on filedocumented in this encounter Care Teams Satellite Television Installer Relationship Specialty Start Date End Date Juvenal Beck MD [address] [place] [address] PCP - General Pediatrics 12/16/20 02/28/23 documented as of this encounter
--- OUTSIDE RECORDS SUMMARY | 2025-02-11 13:27 | XMS_ITS | Clinical Summary ---
Author Organization [facility] it Address [address] [place] [address] Care Team Providers Care Comic Book Designer Name Role Phone Unavailable Primary Care Provider [...] Male 3-dos e series) 2017 Meningococcal B Vaccine (1 o f 2 - Standard) 2018 DTaP,Tdap,and Td Vaccines (1 - Tdap) 2021 Hepatitis B Vaccines (1 of 3 - 19+ 3-dose series) 2021 Depression Screening 07/10/2022 HIV Screening 07/10/2022 Hepatitis C Screening 07/10/2022 Social Influencers of Health Screening 07/10/2022 COVID-19 Vaccine (1 - 2023-2 5 season) 2024 Influenza Vaccine (#1) 2025 HIB Vaccines Aged Out No longer eligi [...] 5 Years) and At-Risk Patients (6 to 49 Years) Aged Out No longer eligible b ased on patient's age to complete this topic RSV Immunization Patients Un jaime 20 months Aged Out No longer eligible b ased on patient's age to complete this topic Varicella Vaccines Aged Out No longer eligible based on patient's age to complete this topic
--- OUTSIDE RECORDS SUMMARY | 2025-02-11 13:27 | XMS_ITS ---
Author Name [facility] Organization Unknown Care Team Organization Name Specialty Phone Email Start Date End Da te Office of the State Comptrol ler ([facility]) 06/21/2024 02/05/2025
== END ==
LOC: HO.CARD 12:43
PROVIDERS: PCP Physician Assistant; Visit Provider Physician Assistant
DX: R00.1 Bradycardia, unspecified (principal)
CPT/HCPCS: 93005

== ENCOUNTER → 2025-02-11 12:53 | Outpatient (BNV) | payer BC, SELFPAY | PROVIDERS: PCP Physician Assistant; Visit Provider Internal Medicine Cardiovascular Disease | DX: R00.1 Bradycardia, unspecified (principal) | CPT/HCPCS: 93010 ==

== ENCOUNTER 2025-02-28 12:09 | Outpatient (REF) | payer BC, SELFPAY ==
--- NOTE | ~2025-02-28 | US_ITS ---
EXAMINATION: US ABDOMEN HISTORY: R74.8 - Abnormal levels of other serum enzymes TECHNIQUE: Real-time grayscale ultrasound imaging of the abdomen was performed and images were reviewed. COMPARISON: There are no prior studies available for comparison. FINDINGS: Liver: The right lobe of the liver measures 16.1 cm in size. The left lobe of the liver measures 7.0 cm in size. The liver demonstrates mildly increased echotexture, consistent with steatosis. No focal mass or intrahepatic biliary ductal dilatation is identified. There is normal hepatopedal flow in the portal vein. Gallbladder and biliary tree: The gallbladder is unremarkable, without evidence of calculi, wall thickening, or pericholecystic fluid. There is no sonographic Tripp sign. The common bile duct is normal in caliber measuring 3 mm. Kidneys: The right kidney measures 9.9 cm in length. The left kidney measures 9.1 cm in length. The kidneys are unremarkable, without evidence of masses, hydronephrosis, or calculi. Pancreas: The pancreatic head, neck, and body are unremarkable. The pancreatic tail is obscured by bowel gas. Spleen: The spleen is normal in size and contour, measuring 10.8 cm in length. Abdominal aorta and inferior vena cava: The visualized portions of the abdominal aorta and inferior vena cava are normal in caliber. There is no free fluid in the abdomen. US/US abdomen complete IMPRESSION: Mild hepatic steatosis. Otherwise unremarkable abdominal ultrasound. Electronically signed by: Humberto Marti MD 02/28/2025 01:04 PM EDT
--- OUTSIDE RECORDS SUMMARY | 2025-02-28 12:11 | XMS_ITS | Clinical Summary ---
Author Organization [facility] it Address [address] [place] [address] Care Team Providers Care Commercial Baking Teacher Name Role Phone Unavailable Primary Care Provider [...] of 3 - 19+ 3-dose series) 2021 HIV Screening 07/10/2022 Hepatitis C Screening 07/10/2022 Social Influencers of Health Screening 07/10/2022 COVID-19 Vaccine (1 - 2023-2 5 season) 2024 Depression Screening 08/07/2024 Influenza Vaccine (#1) 2025 HIB Vaccines Aged [...]
--- OUTSIDE RECORDS SUMMARY | 2025-02-28 12:11 | XMS_ITS | Encounter Summary ---
Author Organization [facility] Address [address] [place] [address] Phone Care Team Providers Care Clinical Documentation Nurse Name Role Phone Juvenal Beck MD Primary Care Provider [phone] Encounter Details Date Type Department Care Team (Late st Contact Info) Description 03/23/2017 Conversion Encounter [facility] [place] [address] [place] [address] Social History Tobacco Use Types Packs/Day Years [...] on filedocumented in this encounter Care Teams Clinical Documentation Nurse Relationship Specialty Start Date End Date Juvenal Beck MD [address] [place] [address] PCP - General Pediatrics 12/16/20 02/28/23 documented as of this encounter
== END 2025-02-28 12:10 | disposition home or self-care (01) ==
LOC: HO.US 12:09
PROVIDERS: PCP Physician Assistant; Visit Provider Physician Assistant
DX: R74.8 Abnormal levels of other serum enzymes (principal)
CPT/HCPCS: 76700

== ENCOUNTER → 2025-02-28 12:12 | Outpatient (BNV) | payer BC, SELFPAY | PROVIDERS: PCP Physician Assistant; Visit Provider Radiology Diagnostic Radiology | DX: K76.0 Fatty (change of) liver, not elsewhere classified (principal) | CPT/HCPCS: 76700 ==

== ENCOUNTER 2025-05-12 14:48 | Outpatient (AMB) | payer BC, SELFPAY ==
--- NOTE | 2025-05-12 14:53 | MHC.PC.OV ---
Vital Signs 05/12/25 14:54 Height 5 ft 9.6 in Weight 148 lb BMI 21.5 BP 118/60 Blood Pressure Location Lt brachial Position Sitting Pulse 61 Pulse Source Pulse Oximeter Temp 97.5 F Temp Source Temporal Artery Scan Pulse Oximetry (%) 97 Oxygen Delivery Method Room Air Intake Visit Reasons: Bradycardia ? Intake Note: Patient is here to follow up on Bradycardia. Solvent Plant Treater Required: No Tile And Marble Setter: Not Required per policy Accompanied by: Self / Same As Patient Allergies No Known Allergies Allergy (Verified 05/12/25 15:00) Medication List - Last Reconciled 05/12/25 by Baldemar Viveros PA-C No Known Home Meds Tobacco use date assessed: 05/12/25 Dental Screening Dental Screen Date: 08/21/24 HPI Bradycardia ? HPI Details Patient is a 25-year-old male here today for follow-up visit. Patient has a past medical history significant for ADHD and fatty liver. Concern--> this past summer patient experienced a presyncopal episode at work. The issue was first noted during an incident at work where the patient experienced significant fatigue and vomiting, leading to an urgent care visit where a slow resting heart rate was observed. An EKG was performed, showing a ventricular rate of 67 bpm, which was considered normal, and today the heart rate is 61 bpm, consistent with previous findings. Otherwise since this 1 episode at work patient has not had any other events. .. Fatty liver disease: Most recent ultrasound of abdomen showing mild fatty liver. Has been making dietary changes and has been a bit more physically active. Patient has lost a few lb since last office visit. . Laboratory Tests 10/19/24 01/15/25 08:18 11:39 ALT 84 H 59 H . [facility] Surgical History No pertinent past surgical history Social History Housing: House Alcohol intake: never Patient Tobacco Use Status: Never used Tobacco e-Cigarette/Vaping Use: Never Used Second Hand Smoke Exposure: No service: No Current occupational status: unemployed Cognitive needs: No Hearing needs: No Vision needs: Yes (glasses) Questionnaire Thrive Questionnaire Date Thrive assessed: 08/21/24 I am a: Patient What is your living situation today?: I have a steady place to live Within the past 12 months, did the food you bought not last and you didn't have the money to get more?: Never true Within the past 12 months, did you worry whether your food would run out before you got money to buy more?: Never true Do you have trouble paying for medicines?: No Do you have trouble getting transportation to medical appointments?: No Do you have trouble paying your heating and electricity bill?: No Do you have trouble taking care of your child, family member or friend?: No Do you have trouble with day-to-day activities such as bathing, preparing meals, shopping, managing finances, etc.?: No Are you currently unemployed and looking for a job?: Yes Are you interested in more education?: No Please select the resources that you would like help with: None Currently or been in a relationship where the following occur: No concerns reported THRIVE Score: 0 LINDA-7 AMB Questionnaire LINDA-7 Date LINDA - 7 assessed: 08/21/24 Source: Developed by Drs. Humberto Rubio, Cecy Pantoja, Luis Botello and colleagues, with an educational carmel from [employer]. Review of Systems Const Denies headache(s) Eyes Denies loss of vision ENT Denies vertigo, Denies dizziness, Denies headache(s) and Denies sore throat Card Denies chest pain, Denies leg edema and Denies lightheadedness Resp Denies cough, Denies hemoptysis and Denies wheezing GI Denies abdominal pain, Denies melena, Denies constipation, Denies diarrhea and Denies vomiting Denies dysuria, Denies urinary frequency and Denies urinary urgency Musc Denies arthralgias, Denies joint swelling, Denies numbness and Denies tingling Neuro Denies Abnormal speech present, Denies behavioral changes, Denies vertigo, Denies dizziness, Denies headache(s), Denies loss of vision, Denies memory loss, Denies numbness and Denies tingling Psych Denies anxiety, Denies behavioral changes, Denies depression, Denies memory loss and Denies panic attacks Diego/Lymph Denies easy bleeding and Denies easy bruising Aller/Immun Denies wheezing Physical exam (Primary Care) Vital Signs: Last Vital Signs Temp 97.5 F 05/12/25 14:54 Pulse 61 05/12/25 14:54 BP 118/60 05/12/25 14:54 Pulse Ox 97 05/12/25 14:54 Oxygen Delivery Method Room Air 05/12/25 14:54 BMI result Body Mass Index 21.5 Tobacco/Smoking Status: Tobacco use Status Tobacco use date assessed 05/12/25 05/12/25 14:59 Patient Tobacco Use Status Never used Tobacco 05/12/25 14:59 e-Cigarette/Vaping Use Never Used 05/12/25 14:59 Thrive Assessment: Date of Thrive Assessment Date Thrive assessed 08/21/24 05/12/25 14:59 Currently or been in a relationship where the following occur: No concerns reported Const General: healthy appearing, no acute distress, alert and awake Nutritional Appearance: well nourished Orientation/consciousness: oriented to person, oriented to place and oriented to time HENMT Ears: TM's normal bilaterally General nose exam: Normal nasal mucous membranes and turbinates present Eyes Conjunctivae: conjunctivae normal Sclerae: sclerae normal Pupils: Equal, round and reactive pupils present Neck Neck: Yes no lymphadenopathy and Yes no JVD Thyroid: Thyroid normal Carotids: no bruits Resp Effort & Inspection: normal respiratory effort and not tachypneic Auscultation: no crackles, no rales, no rhonchi and no wheezes Cardio Rate: regular rate Rhythm: regular rhythm Heart sounds: no murmurs and normal S1 and S2 GI Palpation (GI): Soft to palpation, nontender, no hepatomegaly and no splenomegaly Auscultation: normal bowel sounds Skin General skin exam: no rashes or lesions noted and dry skin Neuro General: oriented to person, oriented to place and oriented to time Cranial nerves: Yes Equal, round and reactive pupils present Speech: No Abnormal speech present Gait exam (Neuro): Normal gait present Motor exam (neuro): no tremor noted Extrem Right upper extremity: full ROM Left upper extremity: full ROM Right lower extremity: full ROM; no edema Left lower extremity: full ROM; no edema Psych Mental Status: mental status grossly normal Speech and movement: Normal speech and movement present Affect: normal affect Attitude: cooperative Thought process: Normal thought process present Coding Level of Care Code Est Pt Level 3 (36414) Diagnoses Fatty liver K76.0 Bradycardia R00.1 Assessment & Plan Assessment & Plan (1) Fatty liver: Code(s): K76.0 - Fatty (change of) liver, not elsewhere classified Category: Medical Plan: Dietary management for fatty liver should continue, focusing on reducing fatty food intake. (2) Bradycardia: Code(s): R00.1 - Bradycardia, unspecified Category: Medical Plan: The plan includes monitoring the patient's heart rate and symptoms, particularly during episodes of illness or dehydration, as these may exacerbate bradycardia. The patient is advised to maintain adequate hydration, especially during physically demanding tasks, and to consider electrolyte supplementation if tolerated Orders: Orders Comprehensive [place]. Panel Fast 05/12/25 Z13.1 - Encounter for screening for diabetes mellitus Complete Blood Count no Diff 05/12/25 Z13.1 - Encounter for screening for diabetes mellitus
[2025-05-12 14:54] VITALS: BP 118/60; PULSE 61; TEMP 36.4; O2SAT 97; BMI 21.5
--- OUTSIDE RECORDS SUMMARY | 2025-05-12 17:12 | XMS_ITS | Clinical Summary ---
Author Organization [facility] Address [address] [place] [address] Phone Care Team Providers Care Leather Roller Name Role Phone Unavailable Primary Care Provider [...] of ADD/ADHD, No family history of *Sudden /CA under 55, No family history of Migraines, [...] 67 02/03/2021 3:56 PM EDT Temperature 36.8 C (98.2 F) 02/03/2021 3:56 PM EDT Respiratory Rate - - Oxygen Saturation - - Inhaled Oxygen Concentration - - Weight 63.7 kg (140 lb 8 oz) 02/03/2021 3:56 PM EDT Height 174.6 cm (5' 8.75 ) 02/03/2021 3:56 PM ED T Body Mass Index 20.9 02/03/2021 3:56 PM EDT Plan of Treatment Health Maintenance Due Date Last Done Comments Men B Vaccine (1 of 2 - Standard) 2018 DTaP,Tdap,and Td Vaccines (7 - Td or Tdap) 04/14/2024 04/14/2014, 04/03/2006, 09/26/2003, Additional history exists Influenza Vaccines (#1) 2025 COVID-19 Vaccine (3 - 2024-2 6 season) 2025 02/08/2021, 01/11/2021 Hepatitis B Vaccines Completed 2002, 2002, 2002 HIB Vaccines Completed 07/23/2003, 08/08, 2002, Additional history exists Pneumococcal Vaccine Completed 07/23/2003, 2002, 2002, Additional history exists IPV Vaccines Completed 04/03/2006, 11/06, 2002, Additional history exists MMR Vaccines Completed 04/03/2006, 03/19/2003 Varicella Vaccines Completed 09/01/2008, 03/19/2003 Hepatitis A Vaccines Completed 05/27/2015, 04/14/20 HPV Vaccines Completed 04/20/2016, 11/06, 05/27/2015 Meningococcal Vaccine Completed 05/04/2018, 014 Insurance BLUE CARD OUT OF STATE
--- OUTSIDE RECORDS SUMMARY | 2025-05-12 17:12 | XMS_ITS | Encounter Summary ---
Author Organization [facility] Address [address] [place] [address] Phone Care Team Providers Care Electrostatic Paint Operator Name Role Phone Juvenal Beck MD Primary Care Provider [phone] Encounter Details Date Type Department Care Team (Late st Contact Info) Description 07/20/2011 Documentation [facility] [place] Family Medicine [address] [place], [place] [phone] Family Medicine, Physician [address] [place] [address] Social History Tobacco Use Types Packs/Day Years [...] on filedocumented in this encounter Care Teams Electrostatic Paint Operator Relationship Specialty Start Date End Date Juvenal Beck MD [address] [place] [id number] PCP - General Pediatrics 12/16/20 02/28/23 documented as of this encounter
--- OUTSIDE RECORDS SUMMARY | 2025-05-12 17:12 | XMS_ITS | Encounter Summary ---
Author Organization [facility] Address [address] [place] [address] Phone Care Team Providers Care Card Grinder Name Role Phone Juvenal Beck MD Primary Care Provider [phone] Encounter Details Date Type Department Care Team (Late st Contact Info) Description 11/13/2009 [place] [facility] [place] [address] [place], [place] [phone] Family Medicine, Physician [address] [place] [address] Social History Tobacco Use Types Packs/Day Years [...] on filedocumented in this encounter Care Teams Card Grinder Relationship Specialty Start Date End Date Juvenal Beck MD [address] [place] [id number] PCP - General Pediatrics 12/16/20 02/28/23 documented as of this encounter
--- OUTSIDE RECORDS SUMMARY | 2025-05-12 17:12 | XMS_ITS | Encounter Summary ---
Author Organization [facility] Address [address] [place] [address] Phone Care Team Providers Care Coding Quality Analyst Name Role Phone Juvenal Beck MD Primary Care Provider [phone] Encounter Details Date Type Department Care Team (Late st Contact Info) Description 03/23/2017 Conversion Encounter [facility] [place] [address] [place] [address] Social History Tobacco Use Types Packs/Day Years [...] on filedocumented in this encounter Care Teams Coding Quality Analyst Relationship Specialty Start Date End Date Juvenal Beck MD [address] [place] [address] PCP - General Pediatrics 12/16/20 02/28/23 documented as of this encounter
--- OUTSIDE RECORDS SUMMARY | 2025-05-12 17:12 | XMS_ITS | Clinical Summary ---
Author Organization [facility] it Address [address] [place] [address] Care Team Providers Care District Branch Manager Name Role Phone Unavailable Primary Care Provider [...] 07/10/2022 Social Influencers of Health Screening 07/10/2022 Depression Screening 08/07/2024 COVID-19 Vaccine (1 - 2023-2 5 season) 2025 Influenza Vaccine (#1) 2025 RSV Immunization Adult Patie nts (1 - 1-dose 75+ series) 2077 HIB Vaccines Aged Out No longer eligi [...]
--- OUTSIDE RECORDS SUMMARY | 2025-05-12 17:12 | XMS_ITS | Encounter Summary ---
Author Organization [facility] Address [address] [place] [address] Phone Care Team Providers Care Human Resources Manager Manufacturing Name Role Phone Juvenal Beck MD Primary Care Provider [phone] Encounter Details Date Type Department Care Team (Late st Contact Info) Description 07/11/2015 Documentation [facility] [place] Family Medicine [address] [place], [place] [phone] Family Medicine, Physician [address] [place] [address] Social History Tobacco Use Types Packs/Day Years [...] on filedocumented in this encounter Care Teams Human Resources Manager Manufacturing Relationship Specialty Start Date End Date Juvenal Beck MD [address] [place] [id number] PCP - General Pediatrics 12/16/20 02/28/23 documented as of this encounter
== END 2025-05-12 15:15 | disposition home or self-care (01) ==
LOC: HO.HMCH 14:49
PROVIDERS: PCP Physician Assistant; Visit Provider Physician Assistant
DX: K76.0 Fatty (change of) liver, not elsewhere classified (principal); R00.1 Bradycardia, unspecified